=== PATIENT | male | born 1935 | race Caucasian/White ===

== ENCOUNTER 2017-03-13 19:42 | Observation (INO) | payer OTHER ==
[~2017-03-13] VITALS: Ht 193 cm; Wt 87.1 kg
[~2017-03-13 19:42] MED LIST: ADALAT CC 30 MG30 MG PO; ADVAIR HFA120 INHALA IH; AREDS 2 PO; AREDS PO; ASPIR-LOW81 MG PO; ASPIRIN81 M1 PO; ATENOLOL50 MG PO; ATORVASTATIN TAB 10M; CLOBETASOL PROP60 GM TP; DAILY VALUE1 EACH PO; DIOVAN80 MG PO; DIPYRIDAMOLE75 MG; FLAGYL500 MG PO; FUROSEMIDE40 MG PO; GLUCOSAMINE-CH1 EA14 PO; KLOR-CON M2020 MEQ PO; LASIX20 MG PO; LEVAQUIN750 MG PO; LIPITOR10 MG PO; NIFEDIAC CC30 MG; POTASSIUM CHLO20 ME1 PO; PREDNISONE10 MG PO; PROTONIX40 MG PO; SPIRIVA RESPIMAT4 GM IH; XARELTO20 MG PO
[2017-03-13 20:29] LABS: HEMATOCRIT 47.1 % (38.0-50.0); MCH 34.2 PG (29.0-34.0); MCHC 33.3 G/DL (30.0-36.0); MCV 102.6 FL (86-99); MEAN PLAT.VOLUME 9.6 uM^3 (9.0-12.4); PLATELET COUNT 152 K/uL (156-360); RBC DIS.WIDTH-CV 12.6 % (11.8-14.6); RBC DIS.WIDTH-SD 47.7 % (39-53); RED BLOOD COUNT 4.59 M/uL (4.00-5.50)
[2017-03-13 20:42] LABS: CHLORIDE 108 mEq/L (99-109); POTASSIUM 4.2 mEq/L (3.7-5.4); SODIUM 143 mEq/L (136-147)
[2017-03-13 20:43] LABS: GLUCOSE 91 mg/dL (70-99)
[2017-03-13 20:45] LABS: ANION GAP 11 MEQ/L (2-14)
[2017-03-13 20:47] LABS: GFR ESTIMATE (CALCULATED) > 59 mL/min/
[2017-03-13 20:48] LABS: UREA NITROGEN (BUN) 19 mg/dL (9-23)
[2017-03-13] MEDS ORDERED: LIPITOR20 MG PO (21:57)
[2017-03-13] MEDS ORDERED: PRESERVISION T1 EACH PO (22:00)
[2017-03-13] MEDS ORDERED: VENTOLIN HFA18 GM IH (22:00)
[2017-03-13] MEDS ORDERED: ANORO ELLIPTA1 EACH IH (22:00)
[2017-03-14 00:15] LABS: ALKALINE PHOSPHATASE 92 IU/L (3-129)
[2017-03-14 00:16] LABS: TROP-I INTERPRETATION NEGATIVE; TROPONIN-I < 0.01 ng/mL (0.0-0.30)
[2017-03-14 00:17] LABS: DIRECT BILIRUBIN 0.4 mg/dL (0.0-0.3)
[2017-03-14 00:37] VITALS: BP 115/55
[2017-03-14 03:31] LABS: ADD MIUA? NO; BILIRUBIN NEGATIVE; BLOOD NEGATIVE; COLOR YELLOW ((YELLOW)); GLUCOSE (STRIP) NEGATIVE; KETONES NEGATIVE; LEUKOCYTES NEGATIVE; NITRITE NEGATIVE; PROTEIN (STRIP) NEGATIVE; SPECIFIC GRAVITY 1.017 (1.000-1.030); UCUL ADDED? NO; UROBILINOGEN 0.2 MG/DL (0.2-1.0)
[2017-03-14 05:06] VITALS: BP 120/62
[2017-03-14 08:43] LABS: TROP-I INTERPRETATION NEGATIVE; TROPONIN-I 0.02 ng/mL (0.0-0.30)
== END 2017-03-14 11:36 | disposition home or self-care (01) ==
LOC: EME 19:42 → EDOF 22:53 → 5WEST 22:53 → EDOF 22:53 → 5WEST 03-14 00:23
PROVIDERS: Physician Assistant Medical
DX: I95.1 Orthostatic hypotension (principal); I11.0 Hypertensive heart disease with heart failure; I50.9 Heart failure, unspecified; I27.2 Other secondary pulmonary hypertension; I45.10 Unspecified right bundle-branch block; J44.9 Chronic obstructive pulmonary disease, unspecified; I25.10 Atherosclerotic heart disease of native coronary artery without angina pectoris; I48.2 Chronic atrial fibrillation; I48.92 Unspecified atrial flutter; E78.5 Hyperlipidemia, unspecified; M19.90 Unspecified osteoarthritis, unspecified site; Z95.1 Presence of aortocoronary bypass graft; Z79.01 Long term (current) use of anticoagulants; Z87.891 Personal history of nicotine dependence
CPT/HCPCS: 71020; 80048; 80076; 81003; 84484; 85027; 93005; 93880; 99202; 99281; 99285; G0378

== ENCOUNTER 2017-03-30 11:33 | Day surgery (SDC) | payer OTHER ==
[~2017-03-30] VITALS: Ht 193 cm; Wt 88.5 kg
[~2017-03-30 11:33] MED LIST changes: +ANORO ELLIPTA1 EACH IH; +LIPITOR20 MG PO; +PRESERVISION T1 EACH PO; +VENTOLIN HFA18 GM IH
[2017-03-30 13:20] VITALS: BP 186/89
[2017-03-30] MEDS ORDERED: NORCO 5/3251 TABLET PO (15:11)
[2017-03-30 16:34] VITALS: BP 159/79
[2017-03-30 17:30] VITALS: BP 145/72
== END 2017-03-30 17:55 | disposition home or self-care (01) ==
LOC: SDC 11:33
PROC: 0YU60JZ Supplement Left Inguinal Region with Synthetic Substitute, Open Approach (ICD-10-PCS; principal; 2017-03-30)
DX: K40.90 Unilateral inguinal hernia, without obstruction or gangrene, not specified as recurrent (principal); D17.6 Benign lipomatous neoplasm of spermatic cord; M19.90 Unspecified osteoarthritis, unspecified site; M54.2 Cervicalgia; I10 Essential (primary) hypertension; I25.10 Atherosclerotic heart disease of native coronary artery without angina pectoris; Z95.1 Presence of aortocoronary bypass graft; J45.909 Unspecified asthma, uncomplicated; Z87.891 Personal history of nicotine dependence; Z79.82 Long term (current) use of aspirin; Z79.01 Long term (current) use of anticoagulants; Z82.49 Family history of ischemic heart disease and other diseases of the circulatory system; Z80.0 Family history of malignant neoplasm of digestive organs; Z80.9 Family history of malignant neoplasm, unspecified; Z88.8 Allergy status to other drugs, medicaments and biological substances
CPT/HCPCS: C1781; J0131; J0360; J0690; J3010; S0020

== ENCOUNTER 2017-07-25 05:53 | Inpatient (IN) | payer OTHER ==
[~2017-07-25] VITALS: Ht 193 cm; Wt 80.6 kg
[~2017-07-25 05:53] MED LIST changes: +NORCO 5/3251 TABLET PO
[2017-07-25 06:54] LABS: EOSINOPHIL (%) 1.7 % (0-5); EOSINOPHIL COUNT 0.1 K/uL (0-0.3); HEMATOCRIT 40.6 % (38.0-50.0); IMMATURE GRANULOCYTE (%) 0.3 % (0.0-0.7); INSTRUMENT ABS NEUTROPHIL CT 4.9 K/uL; LYMPHOCYTE COUNT 0.7 K/uL (1.0-2.8); MCH 34.4 PG (29.0-34.0); MCHC 33.3 G/DL (30.0-36.0); MCV 103.3 FL (86-99); MEAN PLAT.VOLUME 9.4 uM^3 (9.0-12.4); MONOCYTE COUNT 0.4 K/uL (0-0.8); NEUTROPHIL (%) 80.5 % (45-76); NEUTROPHIL COUNT 4.9 K/uL (1.8-6.4); PLATELET COUNT 141 K/uL (156-360); RBC DIS.WIDTH-CV 13.1 % (11.8-14.6); RBC DIS.WIDTH-SD 49.1 % (39-53); RED BLOOD COUNT 3.93 M/uL (4.00-5.50); WHITE BLOOD COUNT 6.1 K/uL (4.1-10.2)
[2017-07-25 07:26] LABS: ANION GAP 9 MEQ/L (2-14); CHLORIDE 112 MEQ/L (99-109); SAMPLE HEMOLYSIS CHECK 0; SAMPLE ICTERIC CHECK 0; SAMPLE LIPEMIA CHECK 0; SODIUM 144 MEQ/L (136-147)
[2017-07-25 07:32] LABS: GFR ESTIMATE (CALCULATED) > 59 mL/min/; GLUCOSE 118 mg/dL (70-99); UREA NITROGEN (BUN) 27 mg/dL (9-23)
[2017-07-25 07:37] LABS: TROP-I INTERPRETATION NEGATIVE; TROPONIN-I 0.06 ng/mL (0.0-0.30)
[2017-07-25 13:35] LABS: TROP-I INTERPRETATION NEGATIVE; TROPONIN-I 0.02 ng/mL (0.0-0.30)
[2017-07-25 13:38] VITALS: BP 157/82
[2017-07-25 16:21] VITALS: BP 137/73
[2017-07-25 19:20] LABS: TROP-I INTERPRETATION NEGATIVE; TROPONIN-I 0.03 ng/mL (0.0-0.30)
[2017-07-25 20:29] VITALS: BP 150/122
[2017-07-26 01:45] LABS: TROP-I INTERPRETATION NEGATIVE; TROPONIN-I 0.03 ng/mL (0.0-0.30)
[2017-07-26 06:46] VITALS: BP 122/61
[2017-07-26 07:25] LABS: ANION GAP 9 MEQ/L (2-14); CHLORIDE 108 MEQ/L (99-109); GFR ESTIMATE (CALCULATED) > 59 mL/min/; GLUCOSE 153 mg/dL (70-99); POTASSIUM 4.3 MEQ/L (3.7-5.4); SAMPLE HEMOLYSIS CHECK 0; SAMPLE ICTERIC CHECK 0; SAMPLE LIPEMIA CHECK 0; SODIUM 144 MEQ/L (136-147); UREA NITROGEN (BUN) 31 mg/dL (9-23)
[2017-07-26 11:30] VITALS: BP 135/64
[2017-07-26 15:05] VITALS: BP 116/58
[2017-07-26 20:57] VITALS: BP 141/72
[2017-07-27 00:21] VITALS: BP 131/63
[2017-07-27 04:52] VITALS: BP 131/63
[2017-07-27 06:26] LABS: EOSINOPHIL (%) 1.3 % (0-5); EOSINOPHIL COUNT 0.1 K/uL (0-0.3); HEMATOCRIT 41.2 % (38.0-50.0); IMMATURE GRANULOCYTE (%) 0.2 % (0.0-0.7); INSTRUMENT ABS NEUTROPHIL CT 6.2 K/uL; LYMPHOCYTE COUNT 1.3 K/uL (1.0-2.8); MCH 33.4 PG (29.0-34.0); MCHC 32.3 G/DL (30.0-36.0); MCV 103.5 FL (86-99); MEAN PLAT.VOLUME 9.9 uM^3 (9.0-12.4); MONOCYTE (%) 7.6 % (3-12); MONOCYTE COUNT 0.6 K/uL (0-0.8); NEUTROPHIL (%) 74.4 % (45-76); NEUTROPHIL COUNT 6.2 K/uL (1.8-6.4); PLATELET COUNT 181 K/uL (156-360); RBC DIS.WIDTH-CV 12.7 % (11.8-14.6); RBC DIS.WIDTH-SD 48.4 % (39-53); RED BLOOD COUNT 3.98 M/uL (4.00-5.50); WHITE BLOOD COUNT 8.3 K/uL (4.1-10.2)
[2017-07-27 06:46] VITALS: BP 120/57
[2017-07-27 06:51] LABS: ALKALINE PHOSPHATASE 112 IU/L (3-129); ANION GAP 8 MEQ/L (2-14); CHLORIDE 105 MEQ/L (99-109); GFR ESTIMATE (CALCULATED) > 59 mL/min/; POTASSIUM 4.1 MEQ/L (3.7-5.4); SAMPLE HEMOLYSIS CHECK 0; SAMPLE ICTERIC CHECK 0; SAMPLE LIPEMIA CHECK 0; SODIUM 141 MEQ/L (136-147); TOTAL BILIRUBIN 1.1 MG/DL (0.0-1.0); UREA NITROGEN (BUN) 35 mg/dL (9-23)
[2017-07-27 06:54] LABS: GLUCOSE 95 mg/dL (70-99)
[2017-07-27] MEDS ORDERED: SPIRIVA RESPIMAT4 GM IH (11:06)
[2017-07-27] MEDS ORDERED: ADVAIR HFA120 INHAL2 IH (11:06)
== END 2017-07-27 14:51 | disposition home or self-care (01) | DRG 190 ==
LOC: EME 05:53 → 5EAST 08:29 → EDOF 08:29 → ENRESERV 08:32 → 5EAST 13:33 → ENPENDDIS 07-27 → 5EAST 07-27 14:51
PROVIDERS: Emergency Medicine; Hospitalist; Internal Medicine
DX: J44.1 Chronic obstructive pulmonary disease with (acute) exacerbation (principal); J96.01 Acute respiratory failure with hypoxia; I50.32 Chronic diastolic (congestive) heart failure; Z79.01 Long term (current) use of anticoagulants; I48.2 Chronic atrial fibrillation; I45.10 Unspecified right bundle-branch block; I27.29 Other secondary pulmonary hypertension; J20.9 Acute bronchitis, unspecified; I25.10 Atherosclerotic heart disease of native coronary artery without angina pectoris; E78.5 Hyperlipidemia, unspecified; I11.0 Hypertensive heart disease with heart failure; I27.81 Cor pulmonale (chronic); I50.82 Biventricular heart failure; I65.29 Occlusion and stenosis of unspecified carotid artery; Z82.49 Family history of ischemic heart disease and other diseases of the circulatory system; Z87.891 Personal history of nicotine dependence; Z95.1 Presence of aortocoronary bypass graft; Z98.41 Cataract extraction status, right eye; Z98.42 Cataract extraction status, left eye; Z79.02 Long term (current) use of antithrombotics/antiplatelets
CPT/HCPCS: 71010; 71250; 80048; 80053; 82607; 82746; 83735; 83880; 84100; 84484; 85025; 93005; 93306; 94640; 94640 76; 94760; 94799; 99202; 99281; 99285; J1940; J2930

== ENCOUNTER 2018-03-04 12:54 | Inpatient (IN) | payer OTHER, MEDICARE ==
[~2018-03-04] VITALS: Ht 193 cm; Wt 85.1 kg
[~2018-03-04 12:54] MED LIST changes: +ADVAIR HFA120 INHAL2 IH
[2018-03-04 14:55] LABS: HEMATOCRIT 40.8 % (38.0-50.0); MCH 35.4 PG (29.0-34.0); MCHC 34.3 G/DL (30.0-36.0); MCV 103.3 FL (86-99); PLATELET COUNT 156 K/uL (156-360); RBC DIS.WIDTH-CV 12.9 % (11.8-14.6); RBC DIS.WIDTH-SD 49.1 % (39-53); RED BLOOD COUNT 3.95 M/uL (4.00-5.50); WHITE BLOOD COUNT 6.7 K/uL (4.1-10.2)
[2018-03-04 14:58] LABS: CHLORIDE 110 mEq/L (99-109); POTASSIUM 4.7 mEq/L (3.7-5.4)
[2018-03-04 14:59] LABS: SODIUM 143 mEq/L (136-147)
[2018-03-04 15:00] LABS: GLUCOSE 149 mg/dL (70-99)
[2018-03-04 15:04] LABS: CREATININE 1.2 mg/dL (0.6-1.3); GFR ESTIMATE (CALCULATED) > 59 mL/min/ (58.99-99999)
[2018-03-04 15:05] LABS: UREA NITROGEN (BUN) 37 mg/dL (9-23)
[2018-03-04 15:36] LABS: BASOPHIL (%) 0.2 % (0-1); EOSINOPHIL (%) 0 % (0-5); IMMATURE GRANULOCYTE (%) 0.3 % (0.0-0.7); LYMPHOCYTE (%) 6.8 % (15-42); LYMPHOCYTE COUNT 0.5 K/uL (1.0-2.8); MONOCYTE COUNT 0.8 K/uL (0-0.8); NEUTROPHIL (%) 80.7 % (45-76); NEUTROPHIL COUNT 5.4 K/uL (1.8-6.4)
[2018-03-04] MEDS ORDERED: zeaxanthin PO (17:27)
[2018-03-04] MEDS ORDERED: ADVAIR HFA120 INHAL2 IH (17:30)
[2018-03-04 20:37] VITALS: BP 131/62
[2018-03-04 23:56] VITALS: BP 150/75
[2018-03-05 05:46] LABS: HEMATOCRIT 38.1 % (38.0-50.0); HEMOGLOBIN 12.9 G/DL (12.5-16.6); MCH 34.6 PG (29.0-34.0); MCHC 33.9 G/DL (30.0-36.0); MCV 102.1 FL (86-99); PLATELET COUNT 152 K/uL (156-360); RBC DIS.WIDTH-CV 12.8 % (11.8-14.6); RBC DIS.WIDTH-SD 48.7 % (39-53); RED BLOOD COUNT 3.73 M/uL (4.00-5.50); WHITE BLOOD COUNT 4.4 K/uL (4.1-10.2)
[2018-03-05 06:13] LABS: CHLORIDE 107 MEQ/L (99-109); CREATININE 1.2 MG/DL (0.6-1.3); GFR ESTIMATE (CALCULATED) > 59 mL/min/ (58.99-99999); POTASSIUM 4.3 MEQ/L (3.7-5.4); SODIUM 141 MEQ/L (136-147); UREA NITROGEN (BUN) 37 mg/dL (9-23)
[2018-03-05 06:16] LABS: GLUCOSE 280 mg/dL (70-99)
[2018-03-05 07:13] VITALS: BP 135/63
[2018-03-05 11:23] VITALS: BP 137/69
[2018-03-05 15:15] VITALS: BP 145/70
[2018-03-05 20:28] VITALS: BP 140/67
[2018-03-05 23:53] VITALS: BP 141/70
[2018-03-06 03:55] VITALS: BP 143/71
[2018-03-06 07:17] VITALS: BP 161/73
[2018-03-06] MEDS ORDERED: AUGMENTIN875 MG PO (09:32)
[2018-03-06] MEDS ORDERED: PREDNISONE5 M1 PO (09:33)
[2018-03-06 10:19] LABS: HEMOGLOBIN A1c (GLYCOHEMOGLOB) 6.4 % (Below 5.7)
[2018-03-06] MEDS ORDERED: PROAIR RESPICL90 MCG IH (10:37)
== END 2018-03-06 14:10 | disposition home or self-care (01) | DRG 189 ==
LOC: EME 12:54 → EDOF 16:27 → ENRESERV 16:41 → 5EAST 20:04 → ENPENDDIS 03-06 → 5EAST 03-06 14:10
PROVIDERS: Family Medicine; Hospitalist; Physician Assistant
DX: J96.01 Acute respiratory failure with hypoxia (principal); J18.9 Pneumonia, unspecified organism; J44.0 Chronic obstructive pulmonary disease with (acute) lower respiratory infection; J44.1 Chronic obstructive pulmonary disease with (acute) exacerbation; I11.0 Hypertensive heart disease with heart failure; I50.32 Chronic diastolic (congestive) heart failure; I48.2 Chronic atrial fibrillation; I25.10 Atherosclerotic heart disease of native coronary artery without angina pectoris; E78.5 Hyperlipidemia, unspecified; Z79.01 Long term (current) use of anticoagulants; Z87.891 Personal history of nicotine dependence; Z95.1 Presence of aortocoronary bypass graft; Z99.81 Dependence on supplemental oxygen
CPT/HCPCS: 71046; 80048; 82948; 83036; 85025; 85027; 87040; 87070; 87205; 87449; 94640; 94640 76; 94799; 99202; 99281; 99285; J0295; J0456; J0696; J1940; J2920; J2930; J7050